=== PATIENT | male | born 1995 | race American Indian/Alaskan Native ===

== ENCOUNTER 2020-09-10 01:53 | Emergency (ER) | payer SELFPAY ==
[2020-09-10] MEDS ORDERED: LACTATED RINGERS 1,000 ML IV ONE (02:01)
[2020-09-10] MEDS ORDERED: ONDANSETRON 4 MG/2 ML INJ IV ONE (02:01)
[2020-09-10] MEDS ORDERED: TETANUS,DIPH,PERTUSS(ACELL) VACCINE 0.5 ML SYRINGE IM ONE (02:02)
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
[2020-09-10] MEDS ORDERED: fentaNYL 100 MCG/2 ML INJ IV ONE ×2 (02:21→02:25)
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
[2020-09-10 02:48] LABS: Basophils % (Auto) 0.4 % (0.0-1.8); Eosinophils # (Auto) 0.2 K/mm3 (0.0-0.4); Eosinophils % (Auto) 1.7 % (0.0-4.3); Hematocrit 45.6 % (35.5-45.6); Hemoglobin 15.6 gm/dl (11.8-15.2); Lymphocytes # (Auto) 3.6 K/mm3 (1.2-5.4); Lymphocytes % (Auto) 30.4 % (13.4-35.0); Mean Corpuscular HGB Conc 34 % (32-34); Mean Corpuscular Volume 87 fl (84-94); Monocytes % (Auto) 8.2 % (0.0-7.3); Platelet Count 181 K/mm3 (140-440); Red Blood Count 5.25 M/mm3 (3.65-5.03)
[2020-09-10] MEDS ORDERED: HYDROmorphone 1 MG/1 ML INJ IV ONE ×2 (02:55→03:32)
[2020-09-10 03:09] LABS: BUN/Creatinine Ratio 17; Blood Urea Nitrogen 17 mg/dL (9-20); Calcium 9.5 mg/dL (8.4-10.2); Hemolysis Index 8
[2020-09-10 03:19] VITALS: BP 141/106
== END 2020-09-10 03:45 | disposition other institution (70) ==
LOC: ED 01:53
DX: S62.92XB Unspecified fracture of left hand, initial encounter for open fracture (principal); W34.00XA Accidental discharge from unspecified firearms or gun, initial encounter; Y93.89 Activity, other specified; Y92.89 Other specified places as the place of occurrence of the external cause; Y99.8 Other external cause status
CPT/HCPCS: 36415; 73130; 80048; 85025; 86850; 86900; 86901; 90471; 90715; 96365; 96375; 96376; 99291; J0690; J1170; J2405; J3010; J7120; 80320; G0480